=== PATIENT | male | born 1985 | race Caucasian/White ===

== ENCOUNTER 2019-12-03 17:55 | Emergency (ER) | payer BC, MEDICAID ==
[2019-12-03 19:16] VITALS: BP 147/86; PULSE 71
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
--- NOTE | 2019-12-05 10:42 | CR ---
Elbow Min 3V Lt CLINICAL HISTORY: Trauma FINDINGS: No acute fracture or dislocation is noted. The fat pads are in normal position. Articular surfaces are smooth. Impression: Negative
== END 2019-12-03 20:57 | disposition home or self-care (01) ==
LOC: JP.ED 17:55
DX: S59.902A Unspecified injury of left elbow, initial encounter (principal); M25.562 Pain in left knee; F17.210 Nicotine dependence, cigarettes, uncomplicated; Z91.030 Bee allergy status; Z79.899 Other long term (current) drug therapy; V86.59XA Driver of other special all-terrain or other off-road motor vehicle injured in nontraffic accident, initial encounter
CPT/HCPCS: 73080-26-LT; 73080-LT; 99284-25